=== PATIENT | male | born 1960 ===

== ENCOUNTER 2017-03-31 19:56 | Emergency (ER) | payer MEDICARE, MEDICAID ==
[2017-03-31 20:07] VITALS: BP 157/68
[2017-03-31] MEDS ORDERED: Fluorescein Sodium TOPICAL* 1 MG TEST OPHTHALMIC ONE (20:12)
[2017-03-31] MEDS ORDERED: HYDROcodone/ACETAMIN 5-325 MG* 1 TAB PO ONE (20:21)
[2017-03-31] MEDS ORDERED: Erythromycin OPTH OINT* APPLIC OINT RIGHT EYE ONE (20:21)
--- NOTE | 2017-03-31 20:30 | UC ---
Eye Complaint HPI - HPI Summary HPI Summary: Earlier today was putting eye drops in R eye and hand jerked, poking R eye with bottle. Since then has had pain, irritation, light-sensitivity. Sees Dr. Lew for glaucoma. - History of Current Complaint Chief Complaint: UCEye Stated Complaint: RIGHT EYE IRRITATION Time Seen by Provider: 03/31/17 20:10 Hx Obtained From: Patient Onset/Duration: Sudden Onset Timing: Constant Severity Initially: Moderate Severity Currently: Moderate Character: Sharp Aggravating Factor(s): Light, Blinking Alleviating Factor(s): Nothing Associated Signs And Symptoms: Positive: Drainage (Clear) - Allergies/Home Medications Allergies/Adverse Reactions: Allergies Allergy/AdvReac Type Severity Reaction Status Date / Time Codeine Allergy GI Upset Verified 03/31/17 20:08 NPH -U 100 Allergy See Comment Uncoded 03/31/17 20:08 Home Medications: Home Medications Aspirin EC Low Dose* [Ecotrin EC Low Dose 81 MG*] 81 mg PO DAILY 03/31/17 [ History Confirmed 03/31/17] Cholesterol Medication 1 dose PO DAILY 03/31/17 [History Confirmed 03/31/17] DULoxetine CAP* [Cymbalta CAP*] 20 mg PO BID 03/31/17 [History Confirmed ] Insulin REGULAR(*) 0 units SUBCUT SEE INSTRUCTIONS 03/31/17 [History Confirmed 03/31/17] Metoprolol Tartrate TAB* [Lopressor TAB*] 25 mg PO DAILY 03/31/17 [History Confirmed 03/31/17] Timolol 0.25% OPHTH.SOLN* [Timoptic Ophth.soln 0.25%] 1 drop BOTH EYES BID 03/31 [History Confirmed 03/31/17] traMADol TAB* [Ultram*] 50 mg PO Q6HR PRN 03/31/17 [History Confirmed 03/31/17] PMH/Surg Hx/FS Hx/Imm Hx Endocrine History Of: Reports: Diabetes Cardiovascular History Of: Reports: Cardiac Disorders - Surgical History Surgical History: Yes Surgery Procedure, Year, and Place: Triple Bypass. Right kidney surgery for abscess - Family History Known Family History: Positive: Hypertension - Social History Occupation: Retired Alcohol Use: None Substance Use Type: None Smoking Status (MU): Never Smoked Tobacco Review of Systems Constitutional: Negative Skin: Negative Eyes: Eye Redness, Photophobia ENT: Negative Respiratory: Negative Cardiovascular: Negative Gastrointestinal: Negative Genitourinary: Negative Motor: Negative Neurovascular: Negative Musculoskeletal: Negative Neurological: Negative Psychological: Negative All Other Systems Reviewed And Are Negative: Yes Physical Exam Triage Information Reviewed: Yes Appearance: Well-Appearing, No Pain Distress, Well-Nourished Vital Signs: Initial Vital Signs Temp 98.7 F 03/31/17 20:01 Pulse 73 03/31/17 20:01 Resp 16 03/31/17 20:01 BP 157/68 03/31/17 20:01 Pulse Ox 98 03/31/17 20:01 Vital Signs Reviewed: Yes Eye Exam: Other - PERRL Eyes: Positive: Conjunctiva Inflamed - R, Other: - bright 2mm x 3mm uptake on fluorescein exam near center of R eye, approx 10 o'clock ENT Exam: Normal ENT: Positive: Normal ENT inspection, Hearing grossly normal, Pharynx normal, TMs normal Dental Exam: Normal Neck exam: Normal Neck: Positive: Supple, Nontender, No Lymphadenopathy Respiratory Exam: Normal Respiratory: Positive: Chest non-tender, Lungs clear, Normal breath sounds, No respiratory distress, No accessory muscle use Cardiovascular Exam: Normal Cardiovascular: Positive: RRR, No Murmur Musculoskeletal Exam: Normal Neurological Exam: Normal Neurological: Positive: Alert Psychological Exam: Normal Skin Exam: Normal Eye Complaint Course/Dx - Differential Dx/Diagnosis Provider Diagnoses: R corneal abrasion Discharge - Discharge Plan Condition: Stable Disposition: HOME Patient Education Materials: Corneal Abrasion (ED) Referrals: Shawnee Lew MD [Medical Doctor] - 2 Days
== END 2017-03-31 20:47 | disposition home or self-care (01) ==
LOC: UCCORT 19:56
DX: S05.01XA Injury of conjunctiva and corneal abrasion without foreign body, right eye, initial encounter (principal); W22.8XXA Striking against or struck by other objects, initial encounter; Y93.89 Activity, other specified; Y92.9 Unspecified place or not applicable; E11.9 Type 2 diabetes mellitus without complications; Z79.4 Long term (current) use of insulin; I51.89 Other ill-defined heart diseases; Z95.1 Presence of aortocoronary bypass graft; Z88.5 Allergy status to narcotic agent
CPT/HCPCS: 99202; A9270-GY; G0463